=== PATIENT | male | born 1995 | race African-American/Black ===

== ENCOUNTER 2024-01-05 17:46 | Inpatient (IN) | payer OTHER ==
[2024-01-05 18:44] VITALS: BMI 23.8
[2024-01-05] MEDS ORDERED: BENZONATATE 200 MG CAPSULE PO PRN (19:12)
[2024-01-05] MEDS ORDERED: IBUPROFEN 400 MG TABLET (FP) PO PRN (19:12)
[2024-01-05] MEDS ORDERED: NALOXONE (NARCAN) HCL 4 MG/0.1 ML SPRAY NS PRN (19:12)
[2024-01-05] MEDS ORDERED: MAGNESIUM HYDROX 2400MG/30ML ORAL SUSPENSION 30 ML CUP PO PRN (19:12)
[2024-01-05] MEDS ORDERED: POLYETHYLENE GLYCOL (HEALTHYLAX) 3350 17 GM PACKET PO PRN (19:12)
[2024-01-05] MEDS ORDERED: LOPERAMIDE HCL 2 MG CAPSULE PO PRN (19:12)
[2024-01-05] MEDS ORDERED: P-EPHED 60MG/TRIPROLIDI 2.5MG TABLET PO PRN (19:12)
[2024-01-05] MEDS ORDERED: DICYCLOMINE HCL 10 MG CAPSULE PO PRN (19:12)
[2024-01-05] MEDS ORDERED: NICOTINE POLACRILEX 2 MG LOZENGE BC PRN (19:12)
[2024-01-05] MEDS ORDERED: NALOXONE HCL 0.4 MG/ML VIAL IM PRN (19:12)
[2024-01-05] MEDS ORDERED: BISMUTH SUBSALICYLATE 524 MG/30 ML PO PRN (19:12)
[2024-01-05] MEDS ORDERED: MAG HYDROX/AL HYDROX/SIMETH 30 ML UNIT-DOSE CUP PO PRN (19:12)
[2024-01-05] MEDS: MELATONIN 5 MG TABLETS PO SCH (23:23)
[2024-01-05] MEDS: THIAMINE 100 MG TABLET PO SCH (23:23)
[2024-01-06] MEDS: hydrOXYzine PAMOATE 25 MG CAPSULE (FP) PO PRN (10:09)
[2024-01-06] MEDS: PRENATAL VITAMINS W/ FOLIC ACID TABLET (FP) PO SCH (10:09)
[2024-01-06] MEDS: methaDONE HCL 10 MG TABLET (FOR DETOX USE ONLY) PO ONE (10:09)
[2024-01-06 10:32] LABS: POTASSIUM 4.4 mmol/L (3.5-5.1)
[2024-01-06 10:34] LABS: HEMATOCRIT 38.2 % (35.4-49); HEMOGLOBIN 12.5 GM/dL (11.7-16.9); MCH 26.7 pg (25.7-33.7); MCHC 32.6 g/dl (32.0-35.9); MEAN CELL VOLUME 81.7 fl (80-96); MEAN PLT VOLUME 9.8 fl (7.5-11.1); PLATELET COUNT 288 10^3/uL (134-434); RBC 4.68 M/mm3 (4.00-5.60); RDW 15.1 % (11.9-15.9); WHITE BLOOD COUNT 6.2 K/mm3 (4.0-10.0)
[2024-01-06 10:36] LABS: ALBUMIN 3.5 g/dl (3.4-5.0); BLOOD UREA NITROGEN 15.2 mg/dL (7-18); CALCIUM 9.2 mg/dL (8.5-10.1)
[2024-01-06 10:41] LABS: BILIRUBIN,TOTAL 0.7 mg/dL (0.2-1); TOT PROT 6.2 g/dl (6.4-8.2)
[2024-01-06] MEDS: LOSARTAN POTASSIUM 25 MG TABLET PO SCH (11:41)
[2024-01-06] MEDS: METHOCARBAMOL 500 MG TABLET PO PRN (17:40)
[2024-01-06] MEDS: cloNIDine HCL 0.1 MG TABLET PO PRN (17:40)
[2024-01-07] MEDS: guaiFENesin 600 MG TABLET.ER (FP) PO PRN (09:21)
[2024-01-07] MEDS: ONDANSETRON *ODT* 4 MG TABLET SL PRN (09:21)
[2024-01-07] MEDS: TRIMETHOBENZAMIDE HCL 200MG/2ML INJ IM PRN (12:20)
[2024-01-07] MEDS: IBUPROFEN 600 MG TABLET (FP) PO PRN (12:21)
[2024-01-07] MEDS: methaDONE HCL 10 MG TABLET PO ONE (14:09)
[2024-01-07] MEDS: cloNIDine HCL 0.1 MG TABLET PO SCH (15:35)
[2024-01-07] MEDS: NICOTINE POLACRILEX 2 MG GUM BUC PRN (18:57)
[2024-01-07] MEDS: guaiFENesin 600 MG TABLET.ER (FP) PO SCH (22:42)
[2024-01-08] MEDS: BENZOCAINE/MENTHOL (CHLORASEPTIC ) LOZENGE MM PRN (05:49)
[2024-01-08] MEDS: methaDONE 40 MG, methaDONE 10 MG PO ONE (09:33)
[2024-01-08] MEDS ORDERED: methaDONE HCL 10 MG TABLET (FOR DETOX USE ONLY) PO ONE (10:00)
[2024-01-09] MEDS: methaDONE 40 MG, methaDONE 20 MG PO ONE (09:19)
[2024-01-09] MEDS: cloNIDine HCL 0.1 MG TABLET PO PRN (17:36)
[2024-01-10] MEDS ORDERED: methaDONE HCL 10 MG TABLET (FOR DETOX USE ONLY) PO ONE (10:00)
[2024-01-10] MEDS: methaDONE 40 MG, methaDONE 30 MG PO ONE (10:25)
[2024-01-11] MEDS: methaDONE HCL 40 MG DISPERSABLE TABLET PO ONE (09:46)
[2024-01-12] MEDS: methaDONE HCL 40 MG DISPERSABLE TABLET PO ONE (09:51)
[2024-01-12] MEDS ORDERED: methaDONE 80 MG, methaDONE 10 MG PO ONE (10:00)
[2024-01-12] MEDS: ACETAMINOPHEN 325 MG TABLET (FP) PO PRN (22:51)
[2024-01-13 06:47] VITALS: PULSE 60
[2024-01-13 09:00] VITALS: BP 144/83; RESP 17; TEMP 96.8
[2024-01-13] MEDS: methaDONE HCL 40 MG DISPERSABLE TABLET PO ONE (09:07)
[2024-01-13] MEDS ORDERED: methaDONE 40 MG, methaDONE 30 MG PO ONE (10:00)
== END 2024-01-13 09:33 | disposition home or self-care (01) | DRG 897 ==
LOC: YASAS 17:46 → Y6N 20:05
PROVIDERS: ADMIT Allergy & Immunology; ATTEND Surgery
PROC: HZ2ZZZZ Detoxification Services for Substance Abuse Treatment (ICD-10-PCS; principal; 2024-01-05)
DX: F11.23 Opioid dependence with withdrawal (principal); F20.0 Paranoid schizophrenia; F12.20 Cannabis dependence, uncomplicated; F17.290 Nicotine dependence, other tobacco product, uncomplicated; I10 Essential (primary) hypertension; R05.8 Other specified cough
CPT/HCPCS: 36415; 71046-TC-FY; 80053; 80305; 80307; 85027; 86780; 93005; 93010; Q0162

== ENCOUNTER 2024-01-29 08:13 | Inpatient (IN) | payer OTHER ==
[2024-01-29 09:19] VITALS: BMI 23.2
[2024-01-29] MEDS ORDERED: BISMUTH SUBSALICYLATE 262 MG/15 ML BTL PO PRN (10:07)
[2024-01-29] MEDS ORDERED: POLYETHYLENE GLYCOL (HEALTHYLAX) 3350 17 GM PACKET PO PRN (10:07)
[2024-01-29] MEDS ORDERED: guaiFENesin 600 MG TABLET.ER (FP) PO PRN (10:07)
[2024-01-29] MEDS ORDERED: LOPERAMIDE HCL 2 MG CAPSULE PO PRN (10:07)
[2024-01-29] MEDS ORDERED: ACETAMINOPHEN 325 MG TABLET (FP) PO PRN (10:07)
[2024-01-29] MEDS ORDERED: NALOXONE HCL 0.4 MG/ML VIAL IM PRN (10:07)
[2024-01-29] MEDS ORDERED: MAG HYDROX/AL HYDROX/SIMETH 30 ML UNIT-DOSE CUP PO PRN (10:07)
[2024-01-29] MEDS ORDERED: NALOXONE (NARCAN) HCL 4 MG/0.1 ML SPRAY NS PRN ×2 (10:07→10:14)
[2024-01-29] MEDS ORDERED: IBUPROFEN 400 MG TABLET (FP) PO PRN (10:07)
[2024-01-29] MEDS ORDERED: DICYCLOMINE HCL 10 MG CAPSULE PO PRN (10:07)
[2024-01-29] MEDS ORDERED: hydrOXYzine PAMOATE 25 MG CAPSULE (FP) PO PRN (10:07)
[2024-01-29] MEDS ORDERED: BENZONATATE 200 MG CAPSULE PO PRN (10:07)
[2024-01-29] MEDS ORDERED: MAGNESIUM HYDROX 2400MG/30ML ORAL SUSPENSION 30 ML CUP PO PRN (10:07)
[2024-01-29] MEDS ORDERED: BENZOCAINE/MENTHOL (CHLORASEPTIC ) LOZENGE MM PRN (10:07)
[2024-01-29] MEDS: ONDANSETRON *ODT* 4 MG TABLET SL PRN (10:27)
[2024-01-29] MEDS: NICOTINE 14 MG/24 HOURS TOPICAL PATCH TD SCH (10:28)
[2024-01-29] MEDS: PRENATAL VITAMINS W/ FOLIC ACID TABLET (FP) PO SCH (10:28)
[2024-01-29] MEDS: LOSARTAN POTASSIUM 50 MG TABLET PO SCH (10:51)
[2024-01-29] MEDS ORDERED: methaDONE HCL 10 MG TABLET (FOR DETOX USE ONLY) ONE (10:55)
[2024-01-29] MEDS: methaDONE HCL 10 MG TABLET PO ONE (10:56)
[2024-01-29] MEDS: IBUPROFEN 600 MG TABLET (FP) PO PRN (11:13)
[2024-01-29] MEDS ORDERED: methaDONE HCL 10 MG TABLET PO PRN (12:31)
[2024-01-29] MEDS: cloNIDine HCL 0.1 MG TABLET PO SCH (14:01)
[2024-01-29] MEDS: METHOCARBAMOL 500 MG TABLET PO PRN (17:51)
[2024-01-29 19:24] VITALS: BP 119/63; PULSE 70; RESP 17; TEMP 101.6
[2024-01-29] MEDS: THIAMINE 100 MG TABLET PO SCH (23:29)
[2024-01-29] MEDS: MELATONIN 5 MG TABLETS PO SCH (23:29)
[2024-01-30] MEDS ORDERED: methaDONE 40 MG, methaDONE 10 MG PO ONE (10:00)
[2024-01-31] MEDS ORDERED: cloNIDine HCL 0.1 MG TABLET PO PRN
[2024-01-31] MEDS ORDERED: methaDONE 40 MG, methaDONE 20 MG PO ONE (10:00)
[2024-02-01] MEDS ORDERED: methaDONE 40 MG, methaDONE 30 MG PO ONE (10:00)
[2024-02-02] MEDS ORDERED: methaDONE HCL 40 MG DISPERSABLE TABLET PO ONE (10:00)
[2024-02-03] MEDS ORDERED: methaDONE 80 MG, methaDONE 10 MG PO ONE (10:00)
== END 2024-01-30 01:40 | disposition short-term general hospital (02) | DRG 897 ==
LOC: YASAS 08:13 → Y6N 10:37
PROVIDERS: ADMIT Allergy & Immunology; ATTEND Surgery
PROC: HZ2ZZZZ Detoxification Services for Substance Abuse Treatment (ICD-10-PCS; principal; 2024-01-29)
DX: F11.23 Opioid dependence with withdrawal (principal); F10.230 Alcohol dependence with withdrawal, uncomplicated; F12.10 Cannabis abuse, uncomplicated; F17.210 Nicotine dependence, cigarettes, uncomplicated; Z99.89 Dependence on other enabling machines and devices
CPT/HCPCS: 0241U-QW; 36415; 80305; 80307; 87811; 93005; 93010; Q0162

== ENCOUNTER 2024-01-29 20:28 | Inpatient (IN) | payer OTHER ==
[2024-01-29] MEDS ORDERED: ACETAMINOPHEN INJECTION 100 ML IVPB ONE (21:15)
[2024-01-29] MEDS: SODIUM CHLORIDE 0.9% 500 ML INFUS.BAG IV ONE (21:20)
[2024-01-29] MEDS: ACETAMINOPHEN 1000 MG/100 ML BAG IVPB ONE (21:20)
[2024-01-29] MEDS ORDERED: ONDANSETRON 4 MG/2 ML VIAL ONE (21:22)
[2024-01-29] MEDS: ONDANSETRON 4 MG/2 ML VIAL IVPUSH ONE (21:27)
[2024-01-29 21:28] LABS: HEMATOCRIT 40.9 % (35.4-49); HEMOGLOBIN 13.3 GM/dL (11.7-16.9); MCH 25.7 pg (25.7-33.7); MCHC 32.5 g/dl (32.0-35.9); MEAN PLT VOLUME 9.3 fl (7.5-11.1); PLATELET COUNT 291 10^3/uL (134-434); RBC 5.18 M/mm3 (4.00-5.60); WHITE BLOOD COUNT 28.8 K/mm3 (4.0-10.0)
[2024-01-29 21:41] LABS: INR 1.5 (0.83-1.09); PROTHROMBIN TIME (PATIENT) 17.1 SEC (9.7-13.0)
[2024-01-29 21:44] LABS: ACTIVATED PTT 26.9 SECONDS (25.2-36.5)
[2024-01-29 21:49] LABS: CALCIUM 8.9 mg/dL (8.5-10.1)
[2024-01-29 21:50] LABS: ALBUMIN 3.7 g/dl (3.4-5.0); BLOOD UREA NITROGEN 6.7 mg/dL (7-18)
[2024-01-29] MEDS ORDERED: VANCOMYCIN 1,500 MG in DEXTROSE 5%-WATER - 250 ML IVPB ONE (21:50)
[2024-01-29 21:53] LABS: CREATININE 0.8 mg/dL (0.55-1.3)
[2024-01-29 21:55] LABS: TOT PROT 6.9 g/dl (6.4-8.2)
[2024-01-29] MEDS ORDERED: PIPERACILLIN/TAZOB 4.5 GM 4.5 GM/100 ML BAG IVPB ONE (22:05)
[2024-01-29] MEDS: PIPERACILLIN/TAZOB 4.5 GM 4.5 GM in DEXTROSE 5%-WATER 100 ML IVPB ONE (22:16)
[2024-01-29] MEDS ORDERED: CEFTRIAXONE 1,000 MG in DEXTROSE 5%-WATER - 50 ML IVPB SCH (22:45)
[2024-01-29 22:59] LABS: ANISOCYTOSIS 1+; MACROCYTOSIS 0; OVALOCYTE 1+
[2024-01-29] MEDS ORDERED: KCL 20 MEQ PREMIX BAG 20 MEQ/100 ML INFUS.BAG IVPB SCH (23:00)
[2024-01-29] MEDS ORDERED: KCL 10 MEQ IVPB 10 MEQ/100 ML INFUS.BAG IVPB ONE (23:24)
[2024-01-29] MEDS: KCL 10 MEQ IVPB 10 MEQ/100 ML INFUS.BAG IVPB SCH (23:44)
[2024-01-29] MEDS: VANCOMYCIN PREMIX 1.5 GM 1,500 MG/300 ML BAG IVPB ONE (23:44)
[2024-01-30] MEDS ORDERED: POTASSIUM CHLORIDE ORAL LIQUID 20 MEQ/15 ML ONE (00:24)
[2024-01-30] MEDS: POTASSIUM CHLORIDE ORAL LIQUID 20 MEQ/15 ML PO ONE ×4 (00:29→13:59)
[2024-01-30] MEDS: KCL 20 MEQ PREMIX BAG 20 MEQ/100 ML INFUS.BAG IVPB ONE (02:37)
[2024-01-30] MEDS: SODIUM CHLORIDE 1,000 ML IV SCH (08:55)
[2024-01-30] MEDS: ACETAMINOPHEN 1000 MG/100 ML BAG IVPB PRN (09:07)
[2024-01-30] MEDS: ACETAMINOPHEN 325 MG TABLET (FP) PO ONE (09:09)
[2024-01-30] MEDS: PANTOPRAZOLE SODIUM 40 MG VIAL IVPUSH SCH (09:53)
[2024-01-30] MEDS: AMPICILLIN NA/SULBACTAM NA 3 GM in SODIUM CHLORIDE 100 ML IVPB SCH (09:56)
[2024-01-30] MEDS: THIAMINE 100 MG TABLET PO SCH (09:57)
[2024-01-30] MEDS: FOLIC ACID 1 MG TABLET (FP) PO SCH (09:57)
[2024-01-30] MEDS: LIDOCAINE 5% TOPICAL PATCH TP SCH (09:59)
[2024-01-30] MEDS: NICOTINE 14 MG/24 HOURS TOPICAL PATCH TD SCH (10:00)
[2024-01-30] MEDS ORDERED: PIPERACILLIN/TAZOB 3.375 GM 3.375 GM in DEXTROSE 5%-WATER - 50 ML IVPB SCH (10:00)
[2024-01-30] MEDS ORDERED: cloNIDine HCL 0.1 MG TABLET PO PRN (11:21)
[2024-01-30 12:36] LABS: HEMATOCRIT 40.3 % (35.4-49); HEMOGLOBIN 13.1 GM/dL (11.7-16.9); MCH 25.6 pg (25.7-33.7); MCHC 32.4 g/dl (32.0-35.9); MEAN CELL VOLUME 78.9 fl (80-96); MEAN PLT VOLUME 9.5 fl (7.5-11.1); PLATELET COUNT 278 10^3/uL (134-434); RBC 5.11 M/mm3 (4.00-5.60); RDW 15.2 % (11.9-15.9); WHITE BLOOD COUNT 26.2 K/mm3 (4.0-10.0)
[2024-01-30] MEDS: FOLIC ACID INJECTION - 1 MG, THIAMINE HCL 100 MG, MULTIVIT INJECTION ADULT 10 ML in SOD... IVPB ONE (13:08)
[2024-01-30 13:12] VITALS: BMI 23.1
[2024-01-30 13:22] LABS: POTASSIUM 3.1 mmol/L (3.5-5.1)
[2024-01-30 13:23] LABS: CALCIUM 8.8 mg/dL (8.5-10.1)
[2024-01-30 13:25] LABS: ALBUMIN 3.4 g/dl (3.4-5.0); BLOOD UREA NITROGEN 9.6 mg/dL (7-18); MAGNESIUM 1.9 mg/dL (1.8-2.4)
[2024-01-30 13:27] LABS: CREATININE 0.8 mg/dL (0.55-1.3)
[2024-01-30 13:29] LABS: BILIRUBIN,TOTAL 0.7 mg/dL (0.2-1); TOT PROT 6.5 g/dl (6.4-8.2)
[2024-01-30 13:51] LABS: HEMATOCRIT 39.4 % (35.4-49); HEMOGLOBIN 12.8 GM/dL (11.7-16.9); MCH 25.6 pg (25.7-33.7); MCHC 32.4 g/dl (32.0-35.9); MEAN CELL VOLUME 78.9 fl (80-96); MEAN PLT VOLUME 9.2 fl (7.5-11.1); PLATELET COUNT 288 10^3/uL (134-434); RBC 4.99 M/mm3 (4.00-5.60)
[2024-01-30] MEDS: AZITHROMYCIN IVPB 500 MG/250 ML BAG IVPB SCH (14:02)
[2024-01-30] MEDS: methaDONE HCL 10 MG TABLET PO ONE (14:07)
[2024-01-30] MEDS: methaDONE HCL 10 MG TABLET (FOR DETOX USE ONLY) PO ONE (14:13)
[2024-01-30 14:18] LABS: HIV INTERPRETATION NEGATIVE (NEGATIVE)
[2024-01-30 15:31] LABS: URINE APPEARANCE CLEAR; URINE COLOR DK YELLOW; URINE GLUCOSE (UA) NEGATIVE (NEGATIVE)
[2024-01-30 15:32] LABS: URINE BILIRUBIN MODERATE (NEGATIVE); URINE KETONE 1+ (NEGATIVE); URINE NITRITE NEGATIVE (NEGATIVE); URINE PROTEIN 3+ (NEGATIVE)
[2024-01-30 15:33] LABS: EPI CELLS 61 /uL (0-25.1); HYALINE CASTS 12 /uL (0-3.1); URINE BACTERIA 41 /uL (0-1359); URINE LEUK ESTERASE NEGATIVE (NEGATIVE); URINE RBC 41 /uL (0-23.9); URINE WBC 16 /uL (0-25.8)
[2024-01-30 15:41] LABS: YEAST FEW (NEGATIVE)
[2024-01-30] MEDS: LORazepam 1 MG TABLET PO ONE (15:42)
[2024-01-30] MEDS: diphenhydrAMINE HCL 25 MG CAPSULE (FP) PO SCH (15:44)
[2024-01-30 18:47] LABS: ERYTHROCYTE SEDIMENTATION RATE 15 mm/hr (0-10)
[2024-01-30] MEDS ORDERED: LIDOCAINE PATCH REMOVAL MC SCH (22:00)
[2024-01-30] MEDS: LIDOCAINE PATCH REMOVAL MC SCH (22:47)
[2024-01-31] MEDS ORDERED: PIPERACILLIN/TAZOB 3.375 GM 3.375 GM in DEXTROSE 5%-WATER - 50 ML IVPB SCH (10:00)
[2024-01-31] MEDS: PANTOPRAZOLE 40 MG TABLET PO SCH (11:19)
[2024-01-31] MEDS: CEFTRIAXONE 1 GM in DEXTROSE 5%-WATER - 50 ML IVPB SCH (11:29)
[2024-01-31 11:30] LABS: HEMATOCRIT 37.2 % (35.4-49); HEMOGLOBIN 12.1 GM/dL (11.7-16.9); MCH 25.6 pg (25.7-33.7); MCHC 32.5 g/dl (32.0-35.9); MEAN CELL VOLUME 78.9 fl (80-96); MEAN PLT VOLUME 9.9 fl (7.5-11.1); PLATELET COUNT 270 10^3/uL (134-434); RBC 4.72 M/mm3 (4.00-5.60); RDW 15.2 % (11.9-15.9); WHITE BLOOD COUNT 17.4 K/mm3 (4.0-10.0)
[2024-01-31 11:58] LABS: POTASSIUM 3.6 mmol/L (3.5-5.1)
[2024-01-31 12:18] LABS: ANISOCYTOSIS 0; HELMET CELLS 0; HOWELL-JOLLY BODIES 0; MACROCYTOSIS 0; OVALOCYTE 0; ROULEAU 0; SICKELED CELLS 0; TARGET CELLS 0; TEAR DROP CELLS 0; TOXIC GRANULATION 0
[2024-01-31 12:27] LABS: BLOOD UREA NITROGEN 12.9 mg/dL (7-18); CALCIUM 8.9 mg/dL (8.5-10.1)
[2024-01-31 12:28] LABS: ALBUMIN 3.2 g/dl (3.4-5.0)
[2024-01-31 12:30] LABS: MAGNESIUM 1.9 mg/dL (1.8-2.4)
[2024-01-31 12:32] LABS: BILIRUBIN,TOTAL 0.3 mg/dL (0.2-1); CREATININE 0.9 mg/dL (0.55-1.3); TOT PROT 6.1 g/dl (6.4-8.2)
[2024-01-31 16:33] LABS: PH,URINE 5.5 (5.0-8.0); URINE APPEARANCE CLEAR; URINE BILIRUBIN NEGATIVE (NEGATIVE); URINE COLOR YELLOW; URINE GLUCOSE (UA) NEGATIVE (NEGATIVE); URINE KETONE NEGATIVE (NEGATIVE); URINE LEUK ESTERASE NEGATIVE (NEGATIVE); URINE NITRITE NEGATIVE (NEGATIVE); URINE PROTEIN NEGATIVE (NEGATIVE); URINE UROBILINOGEN 0.2 mg/dL (0.2-1.0)
[2024-01-31] MEDS: NAPH,MB-DB/K PH,MBDB POWDER PACKET PO ONE (19:40)
[2024-02-01] MEDS: amLODIPine BESYLATE 5 MG TABLET (FP) PO SCH (09:43)
[2024-02-01] MEDS: methaDONE HCL 10 MG TABLET PO ONE (09:44)
[2024-02-01 10:26] LABS: BASO % 0.8 % (0-2.0); EOS % 2.3 % (0-4.5); HEMATOCRIT 38.7 % (35.4-49); HEMOGLOBIN 12.7 GM/dL (11.7-16.9); LYMPH % 13.1 % (8-40); MCH 26.1 pg (25.7-33.7); MCHC 32.8 g/dl (32.0-35.9); MEAN CELL VOLUME 79.7 fl (80-96); MEAN PLT VOLUME 9.9 fl (7.5-11.1); NEUT % 80.8 % (42.8-82.8); PLATELET COUNT 312 10^3/uL (134-434); RBC 4.85 M/mm3 (4.00-5.60); RDW 14.7 % (11.9-15.9); WHITE BLOOD COUNT 12.6 K/mm3 (4.0-10.0)
[2024-02-01 10:49] LABS: POTASSIUM 3.7 mmol/L (3.5-5.1)
[2024-02-01 10:53] LABS: ALBUMIN 3.6 g/dl (3.4-5.0); BLOOD UREA NITROGEN 11.3 mg/dL (7-18); CALCIUM 9.4 mg/dL (8.5-10.1); MAGNESIUM 1.9 mg/dL (1.8-2.4)
[2024-02-01 10:56] LABS: CREATININE 0.8 mg/dL (0.55-1.3); PHOSPHOROUS 3.1 mg/dL (2.5-4.9)
[2024-02-01 10:57] LABS: TOT PROT 6.7 g/dl (6.4-8.2)
[2024-02-01 10:58] LABS: BILIRUBIN,TOTAL 0.2 mg/dL (0.2-1)
[2024-02-01] MEDS: traMADol HCL 50 MG TABLET PO PRN (14:13)
[2024-02-01] MEDS: CEFTRIAXONE 2 GM in DEXTROSE 5%-WATER 100 ML IVPB SCH (14:46)
[2024-02-01] MEDS: traMADol HCL 50 MG TABLET PO SCH (21:20)
[2024-02-02 10:22] LABS: BASO % 0.5 % (0-2.0); EOS % 2.7 % (0-4.5); HEMATOCRIT 41.5 % (35.4-49); HEMOGLOBIN 13.8 GM/dL (11.7-16.9); LYMPH % 16.4 % (8-40); MCH 26.3 pg (25.7-33.7); MCHC 33.1 g/dl (32.0-35.9); MEAN CELL VOLUME 79.4 fl (80-96); MEAN PLT VOLUME 9.4 fl (7.5-11.1); MONO % 3.7 % (3.8-10.2); NEUT % 76.7 % (42.8-82.8); PLATELET COUNT 378 10^3/uL (134-434); RBC 5.23 M/mm3 (4.00-5.60); WHITE BLOOD COUNT 10.3 K/mm3 (4.0-10.0)
[2024-02-02 10:39] LABS: POTASSIUM 4.2 mmol/L (3.5-5.1)
[2024-02-02 10:42] LABS: CALCIUM 10.1 mg/dL (8.5-10.1)
[2024-02-02 10:43] LABS: BLOOD UREA NITROGEN 13.2 mg/dL (7-18); MAGNESIUM 2.1 mg/dL (1.8-2.4)
[2024-02-02 10:46] LABS: PHOSPHOROUS 3.8 mg/dL (2.5-4.9)
[2024-02-02 10:47] LABS: BILIRUBIN,TOTAL 0.4 mg/dL (0.2-1); TOT PROT 7.6 g/dl (6.4-8.2)
[2024-02-02] MEDS: ACETAMINOPHEN 1000 MG/100 ML BAG IVPB PRN (18:00)
[2024-02-02 18:11] VITALS: RESP 18
[2024-02-03] MEDS: amLODIPine BESYLATE 10 MG TABLET (FP) PO SCH (10:15)
[2024-02-03] MEDS: methaDONE HCL 10 MG TABLET PO ONE (10:18)
[2024-02-03 12:05] LABS: BASO % 0.8 % (0-2.0); EOS % 1.7 % (0-4.5); HEMATOCRIT 44.1 % (35.4-49); HEMOGLOBIN 14.2 GM/dL (11.7-16.9); LYMPH % 14.1 % (8-40); MCH 25.7 pg (25.7-33.7); MCHC 32.2 g/dl (32.0-35.9); MEAN CELL VOLUME 79.9 fl (80-96); MEAN PLT VOLUME 9.1 fl (7.5-11.1); MONO % 6.8 % (3.8-10.2); NEUT % 76.6 % (42.8-82.8); PLATELET COUNT 398 10^3/uL (134-434); RBC 5.52 M/mm3 (4.00-5.60); RDW 14.8 % (11.9-15.9); WHITE BLOOD COUNT 12.2 K/mm3 (4.0-10.0)
[2024-02-03 12:22] LABS: POTASSIUM 4.5 mmol/L (3.5-5.1)
[2024-02-03 12:25] LABS: BLOOD UREA NITROGEN 14.4 mg/dL (7-18); CALCIUM 10.2 mg/dL (8.5-10.1)
[2024-02-03 12:26] LABS: ALBUMIN 4.2 g/dl (3.4-5.0); MAGNESIUM 2.4 mg/dL (1.8-2.4)
[2024-02-03 12:28] LABS: PHOSPHOROUS 3.8 mg/dL (2.5-4.9)
[2024-02-03 12:30] LABS: BILIRUBIN,TOTAL 0.3 mg/dL (0.2-1); TOT PROT 7.8 g/dl (6.4-8.2)
[2024-02-03] MEDS: ACETAMINOPHEN 325 MG TABLET (FP) PO ONE (21:10)
[2024-02-03 21:13] VITALS: TEMP 98.2
[2024-02-04 09:41] LABS: BASO % 0.5 % (0-2.0); HEMATOCRIT 41.1 % (35.4-49); HEMOGLOBIN 13.9 GM/dL (11.7-16.9); MCH 26.5 pg (25.7-33.7); MCHC 33.8 g/dl (32.0-35.9); MEAN CELL VOLUME 78.3 fl (80-96); MEAN PLT VOLUME 9.1 fl (7.5-11.1); MONO % 6.7 % (3.8-10.2); NEUT % 75.8 % (42.8-82.8); PLATELET COUNT 380 10^3/uL (134-434); RBC 5.25 M/mm3 (4.00-5.60); RDW 15.2 % (11.9-15.9); WHITE BLOOD COUNT 12.6 K/mm3 (4.0-10.0)
[2024-02-04 10:08] LABS: POTASSIUM 4.5 mmol/L (3.5-5.1)
[2024-02-04 10:10] LABS: CALCIUM 9.5 mg/dL (8.5-10.1)
[2024-02-04 10:11] LABS: ALBUMIN 3.8 g/dl (3.4-5.0)
[2024-02-04 10:14] LABS: CREATININE 0.8 mg/dL (0.55-1.3)
[2024-02-04 10:15] LABS: BILIRUBIN,TOTAL 0.3 mg/dL (0.2-1); TOT PROT 7.2 g/dl (6.4-8.2)
[2024-02-04] MEDS: AMOX TR/POT CLAV 875MG/125MG TABLETS (FP) PO SCH (10:44)
[2024-02-04 12:10] VITALS: BP 136/79; PULSE 74
[2024-02-04 20:07] LABS: C-ANCA <1:20 titer (Neg:<1:20)
[2024-02-04 22:06] LABS: ANTIGLOMERULAR BASEMENT MEN.AB <0.2 units (0.0-0.9)
== END 2024-02-04 12:07 | disposition home or self-care (01) | DRG 194 ==
LOC: JER 20:28 → JERBED 23:40 → J5S 01-30 06:00
PROVIDERS: ADMIT Internal Medicine
DX: J13 Pneumonia due to Streptococcus pneumoniae (principal); F11.23 Opioid dependence with withdrawal; I10 Essential (primary) hypertension; F17.210 Nicotine dependence, cigarettes, uncomplicated; F12.90 Cannabis use, unspecified, uncomplicated; R31.9 Hematuria, unspecified; R63.4 Abnormal weight loss; Z68.24 Body mass index [BMI] 24.0-24.9, adult; E83.39 Other disorders of phosphorus metabolism
CPT/HCPCS: 36415; 71275-TC; 74177-TC; 76775-TC; 80053; 81003; 83516; 83520; 83605; 83690; 83735; 84100; 84484; 85025; 85027; 85610; 85651; 85730; 86038; 86140; 86160; 86225; 86256; 86850; 86900; 86901; 87040; 87070; 87186; 87205; 87389; 87633; 87899; 93005; 93010; 93306-TC; 99285-25; J0131; Q9967

== ENCOUNTER 2024-02-26 17:43 | Inpatient (IN) | payer OTHER ==
[2024-02-26 18:37] VITALS: RESP 16; BMI 30.7
[2024-02-26] MEDS ORDERED: IBUPROFEN 600 MG TABLET (FP) PO PRN (19:59)
[2024-02-26] MEDS ORDERED: METHOCARBAMOL 500 MG TABLET PO PRN (19:59)
[2024-02-26] MEDS ORDERED: hydrOXYzine PAMOATE 25 MG CAPSULE (FP) PO PRN (19:59)
[2024-02-26] MEDS ORDERED: MAGNESIUM HYDROX 2400MG/30ML ORAL SUSPENSION 30 ML CUP PO PRN (19:59)
[2024-02-26] MEDS ORDERED: IBUPROFEN 400 MG TABLET (FP) PO PRN (19:59)
[2024-02-26] MEDS ORDERED: POLYETHYLENE GLYCOL (HEALTHYLAX) 3350 17 GM PACKET PO PRN (19:59)
[2024-02-26] MEDS ORDERED: NALOXONE HCL 0.4 MG/ML VIAL IM PRN (19:59)
[2024-02-26] MEDS ORDERED: BISMUTH SUBSALICYLATE 524 MG/30 ML PO PRN (19:59)
[2024-02-26] MEDS ORDERED: ONDANSETRON *ODT* 4 MG TABLET SL PRN (19:59)
[2024-02-26] MEDS ORDERED: DICYCLOMINE HCL 10 MG CAPSULE PO PRN (19:59)
[2024-02-26] MEDS ORDERED: guaiFENesin 600 MG TABLET.ER (FP) PO PRN (19:59)
[2024-02-26] MEDS ORDERED: NICOTINE POLACRILEX 2 MG GUM BUC PRN (19:59)
[2024-02-26] MEDS ORDERED: NALOXONE (NARCAN) HCL 4 MG/0.1 ML SPRAY NS PRN (19:59)
[2024-02-26] MEDS ORDERED: BENZONATATE 200 MG CAPSULE PO PRN (19:59)
[2024-02-26] MEDS ORDERED: ACETAMINOPHEN 325 MG TABLET (FP) PO PRN (19:59)
[2024-02-26] MEDS ORDERED: BENZOCAINE/MENTHOL (CHLORASEPTIC ) LOZENGE MM PRN (19:59)
[2024-02-26] MEDS ORDERED: LOPERAMIDE HCL 2 MG CAPSULE PO PRN (19:59)
[2024-02-26] MEDS ORDERED: MAG HYDROX/AL HYDROX/SIMETH 30 ML UNIT-DOSE CUP PO PRN (19:59)
[2024-02-26] MEDS ORDERED: cloNIDine HCL 0.1 MG TABLET PO PRN (20:01)
[2024-02-26] MEDS ORDERED: ALBUTEROL SO4 HFA INHALER IH PRN (20:02)
[2024-02-26] MEDS: cloNIDine HCL 0.1 MG TABLET PO ONE (20:49)
[2024-02-26] MEDS: methaDONE HCL 10 MG TABLET (FOR DETOX USE ONLY) PO ONE (20:49)
[2024-02-26 20:53] VITALS: BP 159/100; PULSE 67; TEMP 98.2
[2024-02-26] MEDS: TRIMETHOBENZAMIDE HCL 200MG/2ML INJ IM ONE (22:53)
[2024-02-26] MEDS: MELATONIN 5 MG TABLETS PO SCH (22:54)
[2024-02-26] MEDS: THIAMINE 100 MG TABLET PO SCH (22:54)
[2024-02-27] MEDS: PRENATAL VITAMINS W/ FOLIC ACID TABLET (FP) PO SCH (10:40)
[2024-02-27] MEDS: NICOTINE 14 MG/24 HOURS TOPICAL PATCH TD SCH (10:40)
[2024-02-28] MEDS ORDERED: methaDONE HCL 10 MG TABLET (FOR DETOX USE ONLY) PO ONE (10:00)
[2024-03-01] MEDS ORDERED: methaDONE HCL 10 MG TABLET (FOR DETOX USE ONLY) PO ONE (10:00)
== END 2024-02-27 13:22 | disposition short-term general hospital (02) | DRG 896 ==
LOC: YASAS 17:43 → Y3N 19:48
PROVIDERS: ADMIT Allergy & Immunology; ATTEND Surgery
PROC: HZ2ZZZZ Detoxification Services for Substance Abuse Treatment (ICD-10-PCS; principal; 2024-02-26)
DX: F11.23 Opioid dependence with withdrawal (principal); J18.9 Pneumonia, unspecified organism; F12.20 Cannabis dependence, uncomplicated; F17.210 Nicotine dependence, cigarettes, uncomplicated; F91.8 Other conduct disorders; I10 Essential (primary) hypertension; J45.909 Unspecified asthma, uncomplicated; R01.1 Cardiac murmur, unspecified; Z56.0 Unemployment, unspecified
CPT/HCPCS: 80305; 80307; 93005; 93010